=== PATIENT | male | born 1995 | race Caucasian/White ===

== ENCOUNTER 2016-09-14 15:28 | Emergency (ER) | payer OTHER ==
[~2016-09-14] VITALS: Ht 188 cm; Wt 78.2 kg
[~2016-09-14 15:28] MED LIST: NOMED
[2016-09-14 15:46] VITALS: BP 132/71; PULSE 67; RESP 16; O2SAT 98
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
[2016-09-14] MEDS ORDERED: Lidocaine-Epi-Tetracaine Solution 3 mL Syringe TOPICAL ONE (16:35)
[2016-09-14] MEDS ORDERED: HYDROcodone-APAP 5-325 mg Tablet PO ONE (16:35)
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
[2016-09-14 19:02] VITALS: BP 138/71; PULSE 68; RESP 20; O2SAT 95
== END 2016-09-14 19:04 | disposition home or self-care (01) ==
LOC: SED 15:28
DX: S60.511A Abrasion of right hand, initial encounter (principal); S60.512A Abrasion of left hand, initial encounter; S60.811A Abrasion of right wrist, initial encounter; S63.502A Unspecified sprain of left wrist, initial encounter; V18.0XXA Pedal cycle driver injured in noncollision transport accident in nontraffic accident, initial encounter; Y93.55 Activity, bike riding; Y92.9 Unspecified place or not applicable; Y99.9 Unspecified external cause status